=== PATIENT | female | born 1950 | race Caucasian/White ===

== ENCOUNTER 2017-02-18 07:39 | Day surgery (SDC) | payer OTHER ==
[~2017-02-18] VITALS: Ht 177.8 cm; Wt 64.4 kg
[~2017-02-18 07:39] MED LIST: ATORVASTATIN CA20 MG PO; GABAPENTIN800 MG PO; LISINOPRIL20 MG PO; QC ASPIRIN PO
--- NOTE | 2017-02-18 08:13 | NUR ---
PRE OP TEACHING DONE AND UNDERSTOOD.
--- NOTE | 2017-02-18 10:39 | NUR ---
INTRODUCED SELF TO PT IN PRE OP HOLDING. PT VERIFIED NAME, BIRTHDATE, ALLERGIES AND SURGICAL CONSENT. PT NPO PREMIDNIGHT. PT TOOK ROUTINE MEDICATIONS YESTERDAY WHICH INCLUDED LISINOPRIL. PT AND SURGEON MARKED OPERATIVE SITE ON ABDOMEN. PT CHART REVIEWED AND PT QUESTIONS ANSWERED. 1GM TYLENOL INFUSED PREOPERATIVELY. ANTIBIOTIC AVAIL FOR INFUSION BY ANESTHESIA. KATIE
--- NOTE | 2017-02-18 11:27 | NUR ---
PT RESTATED NAME, BIRTHDATE, ALLERGIES AND SURGICAL PROCEDURE AFTER ENTERING OR SUITE. SD
[2017-02-18] MEDS ORDERED: HYCET1 ML PO (12:02)
--- NOTE | 2017-02-18 12:03 | Provider's Discharge Care Plan ---
Problem, Goal, Plan Problem List 1. STATUS POST VENTRAL HERNIA REPAIR Goals: Improve disease control, Therapeutic intervention Instructions: Follow up as directed, Take meds as directed, abdominal binder 24 7
--- NOTE | 2017-02-18 12:11 | Operative Report ---
Operative Report Date of Surgery: 02/18/17 Preoperate Diagnosis: midline ventral hernia Postoperative Diagnosis: midline ventral hernia Surgeon: Sandeep Crooks MD [employer] Machine Operator Surgeon: none Procedure Performed: midline ventral hernia repair Anesthesia: Gen. endotracheal anesthesia. Local 0.5% Marcaine with epinephrine, 1% Xylocaine with epinephrine Indications: 66-year-old female intermittent bouts of epigastric midabdominal discomfort. Recent ultrasound of her abdomen shows multiple fascial defects in the midline containing preperitoneal fat. FINDINGS: Multiple lobulated in the preperitoneal fat in the extruding through a fascial defect measuring approximately 3 x 4 cm in size. Palpation of the intra -abdominal wall through the fascial defect revealed no further hernias. Surgical Technique: Patient brought to operating room. Placed in the dorsal supine position. Underwent general endotracheal anesthesia, by the anesthesiology department. After proper anesthesia had taken effect, patient's abdomen was prepped using Betadine and draped in a sterile fashion. The site previously identified in the preop holding area was once again identified, infiltrated using local anesthetic. A midline vertical incision was made through the skin and subcutaneous tissue. Using blunt dissection we were able to separate the hernia sac, which contained peritoneal fat and surrounding subcutaneous pocket. The hernia sac was opened at its base at the level of the fascia. Preperitoneal fat attached to the hernia sac was transected using electrocautery dissection. Palpation of the undersurface of the abdominal wall revealed no further hernias. The fascial defect was closed longitudinally using interrupted [id number] O Surgidac suture. The subcutaneous tissue was irrigated with warm normal saline. Hemostasis was assured. The skin approximated using running 4-0 Polysorb and Steri-Strips and pressure to suppress the pectoral fascia and the abdominal binder. Patient was extubated, transferred to the recovery room in stable condition. There were no intraoperative consultation. CONDITION: Stable to postoperative anesthesia recovery room COMPLICATIONS: None ESTIMATED BLOOD LOSS: Normal FLUIDS:: 500 cc lactated Ringer's DRAINS/PACKING: None SPECIMEN:
--- NOTE | 2017-02-18 12:14 | NUR ---
PT TRANSPORTED TO PACU, REPORT GIVEN TO PACU NURSE. ABDOMINAL BINDER IN PLACE AT END OF SURGERY, PRIOR TO TRANSPORT TO PACU. KATIE
--- NOTE | 2017-02-18 12:24 | NUR ---
PT NAUSEATED AND PAINFULL UPON ENTRY INTO THE PACU. MEDS GIVEN.
--- NOTE | 2017-02-18 12:57 | NUR ---
REPORTS PAIN LEVEL NOW MUCH LOWER, 3-4\10 READY FOR COFFEE, REPORT GIVEN, IV SALINE LOCKED IN REPONSE TO RECENT NAUSEA
--- NOTE | 2017-02-18 13:15 | NUR ---
rec'd from OR; SPONT RESP. SITTING UP EATING JELLO; APPEARS COMFORTABLE AND TALKING TO HER DAUGHTER - REPORTS 10/ OP SITE PAIN WHEN ASKED WHAT HER PAIN LEVEL IS. O2 SAT=88 TO 90 ON 2L NC- INSTRUCTED TO TAKE DB&C.
--- NOTE | 2017-02-18 13:52 | NUR ---
SITTING UP ON SIDE OF BED; DRINKING JUICE; DC INFO GIVEN TO PT AND DTR. ABLE TO REPEAT IT BACK TO ME. INSTRUCTED TO TAKE 10 TO 20 DB EVERY HOUR.
--- NOTE | 2017-02-18 13:55 | NUR ---
PT AND DAUGHTER INSTRUCTED ON USE OF I.S. 10 - 20 TIMES PER HR.
--- NOTE | 2017-02-18 14:20 | NUR ---
AMBULATES WELL. STEADY ON FEET. REVIEWED DC INFO TO PT AND DTR. VERBALIZED UNDERSTANDING. COMFORTABLE AND ABD BINDER IS ON AND DRY.
[2017-02-18 15:04] VITALS: BP 130/75
== END 2017-02-18 14:27 | disposition home or self-care (01) ==
LOC: OR SRH 07:39 → SCU SRH 07:40 → OR SRH 09:30
PROVIDERS: Specialist
PROC: 0WQF0ZZ Repair Abdominal Wall, Open Approach (ICD-10-PCS; principal; 2017-02-18 09:30)
DX: K43.9 Ventral hernia without obstruction or gangrene (principal); I10 Essential (primary) hypertension; Z72.0 Tobacco use; J45.909 Unspecified asthma, uncomplicated
CPT/HCPCS: 29229; 29240; 50002; 60001; 70002; 80102; 80212; 84038; 84046